=== PATIENT | female | born 1950 | race Caucasian/White ===

== ENCOUNTER 2017-05-11 07:00 | Day surgery (SDC) | payer OTHER, MEDICARE ==
[~2017-05-11] VITALS: Ht 165.1 cm; Wt 94.3 kg
[~2017-05-11 07:00] MED LIST: ASPIRIN325 MG PO
--- NOTE | 2017-05-11 07:58 | NUR ---
XRAY IS HERE TO TAKE PT TO IMAGING
--- NOTE | 2017-05-11 09:23 | NUR ---
PT IS BACK FROM XRAY. HOOKED BACK UP TO LR.
--- NOTE | 2017-05-11 10:54 | NUR ---
PT GOING THROUGH BREATHING TX PER HOT SAW HELPER PONCHO.
--- NOTE | 2017-05-11 12:09 | NUR ---
05/11/17 1206 Suzette Santiago 1204 PATIENT ARRIVES TO PACU ASLEEP, OPENS EYES TO VERBAL COMMAND, DENIES PAIN OR NAUSEA, THEN BACK TO SLEEP. RESP EVEN AND UNLABORED. MASK AT 8 LITERS.
[2017-05-11] MEDS ORDERED: OXYCODON-ACETA1 EAC2 PO (12:23)
[2017-05-11] MEDS ORDERED: IBUPROFEN600 MG PO (12:23)
[2017-05-22] MEDS ORDERED: HYDROMORPHONE HC4 MG PO (14:24)
[2017-05-22] MEDS ORDERED: MAPAP325 MG PO (14:25)
[2017-05-22] MEDS ORDERED: IBUPROFEN600 MG PO (14:26)
--- NOTE | 2017-06-02 07:48 | OR ---
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 PROCEDURE Left needle localized excisional breast biopsy. SURGEON: Madeline Frias MD. ANESTHESIA General endotracheal (Angela Palafox CRNA) and local 10 mL of 0.25% Marcaine with Epinephrine. INDICATION This 67-year-old white woman is a patient of TONY Mercado and underwent image guided biopsy by Katarina Adame MD, for an upper outer aspect left breast mass that had a fair amount of suspicion . The biopsy did not show malignancy, but did show flat epithelial atypia. Given the findings and technique of biopsy, wider excision of the mass in total is recommended. As it is not palpable, a needle localized biopsy will be necessary. A marker was left at the site of previous biopsy to assist in localization. The patient understands the risks of bleeding, infection, need for additional treatment should malignancy be found after all as well as other unforeseen complications and wished to proceed. FINDINGS The needle was emanating from the outer aspect of the left breast in the upper portion. It was directed laterally. Wide excision of the lesion was undertaken in continuity with normal tissue as specimen radiograph confirmed that the lesion in question was in the specimen including the marker. There were no complications. DESCRIPTION OF PROCEDURE The patient received from the radiology suite with the wire emanating from the left breast and taped in securely. She was given a general endotracheal anesthetic. Preoperative antibiotic Ancef was given and sequential compression device stockings used. The left breast was prepared with spray of Betadine solution after trimming the Electronically Signed By: MADELINE FRIAS MD 06/02/17 0748 PATIENT NAME: WHIT NIETO OPERATIVE REPORT DATE OF : 52 PHYSICIAN: MADELINE FRIAS MD REPORT #: [id number] REPORT IS CONFIDENTIAL AND NOT TO BE RELEASED WITHOUT AUTHORIZATION [facility] [address], [place] [address] Signed wire to appropriate length. I had reviewed the images with the radiologist prior to this operative intervention. An incision was made along the line of skin tension lateral and inferior to the site of the wire emanating from the breast. Dissection was carried through the dermis sharply. Using blunt dissection, the wire was delivered in to the wound and an Allis clamp applied to the parenchyma of the breast. Using electrocautery, a cylindrical core of breast tissue with wire as a guide was excised extending past the tip of the needle. It was noted that the abnormality was along the shaft of the wire not at the end of it. Complete excision was undertaken. The specimen was passed for specimen radiograph. It was subsequently confirmed that the lesion in question as well as a marker associated with the lesion was in the specimen itself. A 2-0 Vicryl had been used to secure 1 vessel within the parenchyma of the breast. The remaining breast was carefully irrigated and found to be hemostatic. The parenchyma was reapproximated with interrupted 2-0 Vicryl. Skin closed with running subcuticular 3-0 Vicryl. Steri-Strips were applied as was a Mepilex silver sponge dressing and an OpSite. The patient was ultimately extubated and transferred to recovery in good condition having suffered no complications. Sponge, needle, and counts reported as correct x3. MD KAREN Soliman/James /[id number] cc: TONY Mercado MD Electronically Signed By: MADELINE FRIAS MD 06/02/17 0748 PATIENT NAME: WHIT NIETO PORSHA OPERATIVE REPORT DATE OF : 52 PHYSICIAN: MADELINE FRIAS MD REPORT #: [id number] REPORT IS CONFIDENTIAL AND NOT TO BE RELEASED WITHOUT AUTHORIZATION
== END 2017-05-11 14:50 | disposition home or self-care (01) ==
LOC: DS 07:00 → US 08:00 → DS 08:00 → EDSTATUS 08:00 → DS 09:00 → US 05-18 09:00
PROVIDERS: Surgery
PROC: 0HBU0ZX Excision of Left Breast, Open Approach, Diagnostic (ICD-10-PCS; principal; 2017-05-11 09:00)
DX: D05.12 Intraductal carcinoma in situ of left breast (principal); I10 Essential (primary) hypertension; F17.210 Nicotine dependence, cigarettes, uncomplicated; Z88.5 Allergy status to narcotic agent; Z90.710 Acquired absence of both cervix and uterus; Z90.49 Acquired absence of other specified parts of digestive tract; Z90.89 Acquired absence of other organs; Z98.890 Other specified postprocedural states
CPT/HCPCS: 00404; 19285; 76098; G0206; J0330; J0690; J1100; J1644; J1885; J2250; J2405; J2704; J3010; J7120

== ENCOUNTER 2017-05-22 07:18 | Day surgery (SDC) | payer OTHER, MEDICARE ==
[~2017-05-22] VITALS: Ht 165.1 cm; Wt 94.3 kg
[~2017-05-22 07:18] MED LIST changes: +IBUPROFEN600 MG PO; +OXYCODON-ACETA1 EAC2 PO
--- NOTE | 2017-05-22 14:15 | NUR ---
PT SITTING IN BED, WAITING FOR IV. SHE IS ALERT, ORIENTED AND REMAINING OPTIMISTIC POSSIBLE. SHE TOLD ME THE OPTONS FOR TODAY, I ENCOURAGED TO NOT LOOK TOO FAR DOWN THE ROAD UNTIL WE KNOW WHAT WE ARE UP AGAINST. SHE VOICED THAT SHE WAS WORKING HARD AT THAT. SHE REQUESTED PRAYER, WILL FOLLOW NEEDED
[2017-05-22] MEDS ORDERED: HYDROMORPHONE HC4 MG PO ×2 (14:24)
[2017-05-22] MEDS ORDERED: MAPAP325 MG PO ×2 (14:25)
[2017-05-22] MEDS ORDERED: IBUPROFEN600 MG PO ×2 (14:26)
--- NOTE | 2017-05-22 14:44 | NUR ---
05/22/17 1444 Latesha Lindsey 1406 TO ARRIVED TO PACU WITH DRAIN IN PLACE FROM OR, PT ON 10L VIA MASK. 1421 PT O2 SAT 100%, O2 REMOVED. 1427 MD AT [facility]. PT REPORTING 4/10 PAIN AND NOT ACCEPTABLE. PEIN MEDICATIONS GIVEN PER EMAR. 1433 PT FEELING NAUSEA, MEDICATIONS GIVEN 1436 3/10 PAIN, MEDICATION GIVEN PER EMAR.
--- NOTE | 2017-05-22 16:14 | NUR ---
LE 1533 PT RETURNED FROM PACU WIDE AWAKE. RATES PAIN 3/10. DRINKING COFFEE AND WATER. CALL LITE IN PLACE.
--- NOTE | 2017-05-22 16:45 | NUR ---
CUONG 1615 PT VERY EMOTIONAL AND TEARY. RN SAT AT BEDSIDE AND VISITED WITH PT. VITAL SIGNS TAKEN. EATING PUDDING.
--- NOTE | 2017-06-02 07:49 | OR ---
[facility] [address], [place] [address] Signed DATE OF PROCEDURE: 05/22/17 PREOPERATIVE DIAGNOSES Left infiltrating ductal breast carcinoma (upper outer quadrant). Negative margin on needle localized excision. Tumor particulars 0.9 cm, ER/MI positive. POSTOPERATIVE DIAGNOSES Left infiltrating ductal breast carcinoma (upper outer quadrant). Negative margin on needle localized excision. Tumor particulars 0.9 cm, ER/MI positive. Moderately suspicious axillary lymph nodes x3. PROCEDURE Injection of methylene blue for sentinel lymph node identification. Axillary exploration with ultimately axillary dissection level 2. ANESTHESIA: General endotracheal, Angela Diaz CRNA. INDICATION This 67-year-old white woman is a patient of TONY Mercado. She was noted to have a left abnormal mammogram. The lesion was quite suspicious and image-guided biopsy was undertaken by Dr. Katarina Adame. This showed flat epithelial atypia. On that basis, a needle localized excisional biopsy was undertaken. The lesion was located in the upper outer aspect of the left breast. The pathology report of the lesion actually showed infiltrating ductal carcinoma, moderately differentiated. ER/MI positive with size of 0.9 cm. She is recovered well from her operation. I have discussed with her extensively the options of management going forward. Radiation therapy of the left breast is anticipated. Staging of the axilla by sentinel lymph node biopsy has been recommended. A plan was made for methylene blue and radionuclide sentinel lymph node identification, however, the radionuclide is not available today. I did offer to reschedule on a different day, but she wishes to proceed with methylene blue alone as difficulties with rescheduling a time are considerable for her. It is notable that the incision from excision of the tumor was in the upper outer aspect of the breast not far from the axilla itself. She understands that if sentinel lymph node biopsy is positive on frozen intraoperative examination, then completion axillary dissection be undertaken. Additionally, if the sentinel lymph nodes could not be identified by dye technique, axillary dissection would ensue or if there were suspicious lymph nodes by palpation, axillary dissection would be Electronically Signed By: MADELINE FRIAS MD 06/02/17 0749 PATIENT NAME: WHIT NIETO OPERATIVE REPORT DATE OF : 52 PHYSICIAN: MADELINE FRIAS MD REPORT #: [id number] REPORT IS CONFIDENTIAL AND NOT TO BE RELEASED WITHOUT AUTHORIZATION [facility] [address], [place] [address] Signed recommended. Understands and she wished to proceed today. FINDINGS Methylene blue arborized around the areola including the nipple itself. There was methylene blue that appeared to be arrested at the incision in the upper outer aspect of the left breast. Axillary evaluation did not show uptake of methylene blue dye at all and extensive attempts to identify sentinel lymph node that we were unsuccessful. On that basis, the incision was extended and better examination of the axilla undertaken with palpation revealing 3 lymph nodes that were somewhat suspicious as they were at least 2 cm in size. They were not firm and hard, however. Axillary dissection was undertaken and level 2 dissection was undertaken. The long thoracic and thoracodorsal neurovascular bundles were identified and preserved. A generous axillary specimen was obtained including the 3 suspicious nodes and throughout the remaining soft tissue of the axilla with extensive evaluation, no findings of methylene blue uptake were noted. A drain was placed. DESCRIPTION OF PROCEDURE The patient was brought to the operating room, given a general endotracheal anesthetic. Preoperative antibiotic Ancef was given. Sequential compression device stockings were applied. Heparin subcutaneously administered. At the upper outer aspect of the left areola, 1 mL of methylene blue dye was injected in the subepidermal area. This was 50% dilute directly from the bottle. Arborization around the areola was noted including uptake into the nipple itself. In time, dye could be seen near the upper outer aspect incision, but not beyond it. Some deep parenchymal injection of methylene blue dye was undertaken at the outset even though the dominant amount was in the subepithelial space. The left breast was prepared with a Betadine solution and drape d sterilely. A small transverse incision was made in the mid axilla, dissection carried through the dermis with electrocautery. In the usual technique of [place] retractors and blunt dissection with a tonsil clamp and headlight illumination and loupe magnification, the axillary tissue was carefully interrogated looking for blue dye and lymph node or lymph tissue. Extensive evaluation was undertaken throughout the axilla both medially, inferiorly, laterally, deep, and superiorly. There was no uptake of methylene blue dye whatsoever. Upon dissection in the medial aspect of the left axilla, entry to a seroma cavity was noted. Turbid brownish fluid was removed. It was clear that the sentinel lymph node would not be identified on this evaluation. Digital examination to the axilla was undertaken showing initially 2 rather enlarged lymph nodes at least 2 cm and possibly larger. They did not have uptake of methylene Electronically Signed By: MADELINE FRIAS MD 06/02/17 0749 PATIENT NAME: WHIT NIETO OPERATIVE REPORT DATE OF : 52 PHYSICIAN: MADELINE FRIAS MD REPORT #: [id number] REPORT IS CONFIDENTIAL AND NOT TO BE RELEASED WITHOUT AUTHORIZATION [facility] [address], [place] [address] Signed blue dye. It was deemed appropriate to perform axillary dissection on the basis of non-uptake of the methylene blue, but also from the moderately suspicious axillary lymph nodes that were identified by palpation. A level 2 dissection was undertaken extending from the axillary vein and superficial to the thoracodorsal and neurovascular bundle and lateral to the long thoracic nerve. A generous packet of axillary fat and lymph nodes was obtained. Clips were applied to the vessels as necessary. After excision of the soft tissue, the axilla was packed with a laparotomy pad and examination of the axillary contents undertaken. Three somewhat suspicious lymph nodes were identified, all marked with suture. At this point, further examination was deemed of little import. Dissection through the subcutaneous and fatty tissue of the axilla showed no uptake of methylene blue dye at all. Irrigation was undertaken of the axilla with sterile water. There was no evidence of untoward bleeding. Some Gage was applied to the axillary contents and through a separate stab incision, a 7 mm Ronaldo drain was placed. This secured the skin with nylon suture. The wound was closed with interrupted 2-0 Vicryl in deep subcutaneous layer and running subcuticular 3-0 Vicryl to the skin. Steri-Strips were applied as was a Mepilex silver sponge dressing. The drain had been secured with 2-0 nylon, trimmed to appropriate size and attached to bulb suction. The patient was ultimately extubated and transferred to recovery room in good condition having suffered no complication. Sponge, needle, and counts reported as correct x2. MD KAREN Soliman/James /[id number] cc: MD Viktor Hermosillo FNP Electronically Signed By: MADELINE FRIAS MD 06/02/17 0749 PATIENT NAME: WHIT NIETO PORSHA OPERATIVE REPORT DATE OF : 52 PHYSICIAN: MADELINE FRIAS MD REPORT #: [id number] REPORT IS CONFIDENTIAL AND NOT TO BE RELEASED WITHOUT AUTHORIZATION
== END 2017-05-22 17:15 | disposition home or self-care (01) ==
LOC: DS 07:18 → EDSTATUS 08:30 → DS 08:30 → NUC 08:30 → DS 17:15
PROVIDERS: Surgery
PROC: 07B60ZX Excision of Left Axillary Lymphatic, Open Approach, Diagnostic (ICD-10-PCS; principal; 2017-05-22 12:00)
DX: C50.412 Malignant neoplasm of upper-outer quadrant of left female breast (principal); I10 Essential (primary) hypertension; F17.210 Nicotine dependence, cigarettes, uncomplicated; Z90.89 Acquired absence of other organs; Z88.8 Allergy status to other drugs, medicaments and biological substances; Z88.5 Allergy status to narcotic agent; Z90.710 Acquired absence of both cervix and uterus; Z90.49 Acquired absence of other specified parts of digestive tract; Z98.890 Other specified postprocedural states
CPT/HCPCS: 00400; J0330; J0690; J1100; J1644; J1885; J2250; J2405; J2704; J3010; J7120; Q9968

== ENCOUNTER 2017-05-28 10:30 | Emergency (ER) | payer OTHER, MEDICARE ==
[~2017-05-28] VITALS: Ht 165.1 cm; Wt 94.3 kg
[~2017-05-28 10:30] MED LIST changes: +HYDROMORPHONE HC4 MG PO; +MAPAP325 MG PO
--- OUTSIDE RECORDS SUMMARY | 2017-05-28 10:56 | XMS ---
Demographics + + + | Address | [address] | | | [place] [address] | + + + | Preferred Language | Unknown | + + + | Marital Status | Unknown | + + + | Muslim Affiliation | Unknown | + + + | Race | Unknown | + + + | Ethnic Group | Unknown | + + + Author + + + | Author | [facility] | + + + | Organization | [facility] | + + + | Address | [address] | | | [place] [address] | + + + | Phone | | + + + Care Team Providers + + + + | Care Senior Data Warehouse Developer Name | Role | Phone | + + + + Unavailable | Unavailable | + + + + PROBLEMS +---------+ + + +--------+ + + | Type | Condition | ICD9-CM | [id number] | Onset | Condition | SNOMED | | | | Code | Code | Dates | Status | Code | +---------+ + + +--------+ + + | Problem | Hypertensi | | I10 | | Active | [id number] | | | on | | | | | | +---------+ + + +--------+ + + | Problem | Abnormalit | R92.8 | | | Active | [id number] | | | y of left | | | | | | | | breast on | | | | | | | | screening | | | | | | | | mammogram | | | | | | +---------+ + + +--------+ + + | Problem | Mass of | N63 | | | Active | 83217485 | | | left | | | | | | | | breast | | | | | | +---------+ + + +--------+ + + | Problem | Lumbar | M54.16 | | | Active | 025596684 | | | radiculopa | | | | | | | | thy | | | | | | +---------+ + + +--------+ + + | Problem | Hyperglyce | | R73.9 | | Active | 95319588 | | | nikky | | | | | | +---------+ + + +--------+ + + | Problem | Lump of | N63 | | | Active | 93469640 | | | right | | | | | | | | breast | | | | | | +---------+ + + +--------+ + + | Problem | Breast | N64.4 | | | Active | 58783746 | | | tenderness | | | | | | +---------+ + + +--------+ + + ALLERGIES Unknown Allergies SOCIAL HISTORY No smoking Hx information available PLAN OF CARE VITAL SIGNS MEDICATIONS Unknown Medications RESULTS No Results PROCEDURES No Known procedures IMMUNIZATIONS No Known Immunizations"
--- OUTSIDE RECORDS SUMMARY | 2017-05-28 10:56 | XMS ---
Demographics + + + | Address | [address] | | | [place] [address] | + + + | Preferred Language | Unknown | + + + | Marital Status | Unknown | + + + | Buddhist Affiliation | Unknown | + + + | Race | Unknown | + + + | Ethnic Group | Unknown | + + + Author + + + | Author | [facility] | + + + | Organization | [facility] | + + + | Address | [address] | | | [place] [address] | + + + | Phone | | + + + Care Team Providers + + + + | Care Biomedical Engineering Director Name | Role | Phone | + + + + Unavailable | Unavailable | + + + + PROBLEMS +---------+ + + +--------+ + + | Type | Condition | ICD9-CM | [id number] | Onset | Condition | SNOMED | | | | Code | Code | Dates | Status | Code | +---------+ + + +--------+ + + | Problem | Mass of | N63 | | | Active | [id number] | | | left | | | | | | | | breast | | | | | | +---------+ + + +--------+ + + | Problem | Lump of | N63 | | | Active | 00773324 | | | right | | | | | | | | breast | | | | | | +---------+ + + +--------+ + + | Problem | Hyperglyce | | R73.9 | | Active | 87133400 | | | nikky | | | | | | +---------+ + + +--------+ + + | Problem | Hypertensi | | I10 | | Active | 43083259 | | | on | | | | | | +---------+ + + +--------+ + + | Problem | Breast | N64.4 | | | Active | 47495582 | | | tenderness | | | | | | +---------+ + + +--------+ + + | Problem | Lumbar | M54.16 | | | Active | 704197755 | | | radiculopa | | | | | | | | thy | | | | | | +---------+ + + +--------+ + + ALLERGIES Unknown Allergies SOCIAL HISTORY No smoking Hx information available PLAN OF CARE VITAL SIGNS MEDICATIONS Unknown Medications RESULTS No Results PROCEDURES No Known procedures IMMUNIZATIONS No Known Immunizations"
--- OUTSIDE RECORDS SUMMARY | 2017-05-28 10:56 | XMS ---
Demographics + + + | Address | [address] | | | [place] [address] | + + + | Preferred Language | Unknown | + + + | Marital Status | Unknown | + + + | Evangelical Affiliation | Unknown | + + + | Race | Unknown | + + + | Ethnic Group | Unknown | + + + Author + + + | Author | [facility] | + + + | Organization | [facility] [place] [facility] | + + + | Address | [address] | | | [place] [address] | + + + | Phone | | + + + Care Team Providers + + + + | Care Research Chief Engineer Name | Role | Phone | + + + + Unavailable | Unavailable | + + + + PROBLEMS +---------+ + + +--------+ + + | Type | Condition | ICD9-CM | [id number] | Onset | Condition | SNOMED | | | | Code | Code | Dates | Status | Code | +---------+ + + +--------+ + + | Problem | Hypertensi | | I10 | | Active | [id number] | | | on | | | | | | +---------+ + + +--------+ + + | Problem | Abnormalit | R92.8 | | | Active | 171084235 | | | y of left | | | | | | | | breast on | | | | | | | | screening | | | | | | | | mammogram | | | | | | +---------+ + + +--------+ + + | Problem | Mass of | N63 | | | Active | 93197940 | | | left | | | | | | | | breast | | | | | | +---------+ + + +--------+ + + | Problem | Lumbar | M54.16 | | | Active | 061310009 | | | radiculopa | | | | | | | | thy | | | | | | +---------+ + + +--------+ + + | Problem | Hyperglyce | | R73.9 | | Active | 49232528 | | | nikky | | | | | | +---------+ + + +--------+ + + | Problem | Lump of | N63 | | | Active | 61274499 | | | right | | | | | | | | breast | | | | | | +---------+ + + +--------+ + + | Problem | Breast | N64.4 | | | Active | 25202884 | | | tenderness | | | | | | +---------+ + + +--------+ + + ALLERGIES Unknown Allergies SOCIAL HISTORY No smoking Hx information available PLAN OF CARE VITAL SIGNS MEDICATIONS Unknown Medications RESULTS No Results PROCEDURES No Known procedures IMMUNIZATIONS No Known Immunizations"
--- OUTSIDE RECORDS SUMMARY | 2017-05-28 10:56 | XMS ---
Demographics + + + | Address | [address] | | | [place] [address] | + + + | Preferred Language | Unknown | + + + | Marital Status | Unknown | + + + | Religion Affiliation | Unknown | + + + | Race | Unknown | + + + | Ethnic Group | Unknown | + + + Author + + + | Author | [facility] | + + + | Organization | [facility] | + + + | Address | [address] | | | [place] [address] | + + + | Phone | | + + + Care Team Providers + + + + | Care Icer Air Conditioning Name | Role | Phone | + + + + Unavailable | Unavailable | + + + + PROBLEMS +---------+ + + +--------+ + + | Type | Condition | ICD9-CM | [id number] | Onset | Condition | SNOMED | | | | Code | Code | Dates | Status | Code | +---------+ + + +--------+ + + | Problem | Mass of | N63 | | | Active | 17450898 | | | left | | | | | | | | breast | | | | | | +---------+ + + +--------+ + + | Problem | Lump of | N63 | | | Active | 97492443 | | | right | | | | | | | | breast | | | | | | +---------+ + + +--------+ + + | Problem | Hyperglyce | | R73.9 | | Active | 85979431 | | | nikky | | | | | | +---------+ + + +--------+ + + | Problem | Hypertensi | | I10 | | Active | 17016818 | | | on | | | | | | +---------+ + + +--------+ + + | Problem | Breast | N64.4 | | | Active | 56130693 | | | tenderness | | | | | | +---------+ + + +--------+ + + | Problem | Lumbar | M54.16 | | | Active | 082792741 | | | radiculopa | | | | | | | | thy | | | | | | +---------+ + + +--------+ + + ALLERGIES No Information SOCIAL HISTORY Never Assessed PLAN OF CARE VITAL SIGNS MEDICATIONS Unknown Medications RESULTS No Results PROCEDURES No Known procedures IMMUNIZATIONS No Known Immunizations MEDICAL (GENERAL) HISTORY + + + + | Type | Description | Date | + + + + | Medical History | HTN | | + + + + | Medical History | Major Depression--remission | | | | since 1989, possibly | | | | Bipolar | | + + + + | Medical History | 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 | | + + + + | Medical History | Carpal tunnel syndrome | | | | bilateral | | + + + + | Medical History | Post Menopausal since 1985 | | + + + + | Medical History | G5, P4, Miscarriage 1 | | + + + + | Medical History | Lumbar DDD | | + + + + | Medical History | Cervical DDD with fusion | | + + + + | Surgical History | Tonsilectomy, adnoidectomy | 1964 | + + + + | Surgical History | R knee | 1974 | + + + + | Surgical History | Hysto, apendectomy, | 1987 | | | rectocile, systocile | | + + + + | Surgical History | 4 vaginal deliveries. G5, | 1970, 1973, 1983, 1980 | | | P 4, Miscarriage x1 | | + + + + | Surgical History | Bilateral carpel tunnel | 1989 | + + + + | Surgical History | 5 surgeries to R leg [place] | 1998 | | | in 30 places) | | + + + + | Surgical History | C5-C7 fused | 2005 | + + + + | Surgical History | Bilateral Cataract removal | 2014 | | | surgery | | + + + + | Hospitalization History | 14 admissions to mental | 1965 - 1983 | | | health facilities between | | | | this time. Major | | | | depression. Had suicidal | | | | attempts | | + + + +"
--- OUTSIDE RECORDS SUMMARY | 2017-05-28 10:57 | XMS ---
Demographics + + + | Address | [address] | | | [place] [address] | + + + | Preferred Language | Unknown | + + + | Marital Status | Unknown | + + + | Jehovah'S Witness Affiliation | Unknown | + + + | Race | Unknown | + + + | Ethnic Group | Unknown | + + + Author + + + | Author | [facility] | + + + | Organization | [facility] | + + + | Address | [address] | | | [place] [address] | + + + | Phone | | + + + Care Team Providers + + + + | Care Vibration Analyst Name | Role | Phone | + + + + Unavailable | Unavailable | + + + + PROBLEMS +---------+ + + +--------+ + + | Type | Condition | ICD9-CM | [id number] | Onset | Condition | SNOMED | | | | Code | Code | Dates | Status | Code | +---------+ + + +--------+ + + | Problem | Lump of | N63 | | | Active | 95411784 | | | right | | | | | | | | breast | | | | | | +---------+ + + +--------+ + + | Problem | Breast | N64.4 | | | Active | 15543451 | | | tenderness | | | | | | +---------+ + + +--------+ + + | Problem | Hypertensi | | I10 | | Active | 45145598 | | | on | | | | | | +---------+ + + +--------+ + + | Problem | Lumbar | M54.16 | | | Active | 944976832 | | | radiculopa | | | | | | | | thy | | | | | | +---------+ + + +--------+ + + | Problem | Hyperglyce | | R73.9 | | Active | 11465017 | | | nikky | | | | | | +---------+ + + +--------+ + + ALLERGIES Unknown Allergies SOCIAL HISTORY No smoking Hx information available PLAN OF CARE VITAL SIGNS MEDICATIONS Unknown Medications RESULTS No Results PROCEDURES No Known procedures IMMUNIZATIONS No Known Immunizations"
--- OUTSIDE RECORDS SUMMARY | 2017-05-28 10:57 | XMS ---
Demographics + + + | Address | [address] | | | [place] [address] | + + + | Preferred Language | Unknown | + + + | Marital Status | Unknown | + + + | Sikh Affiliation | Unknown | + + + | Race | Unknown | + + + | Ethnic Group | Unknown | + + + Author + + + | Author | [facility] | + + + | Organization | [facility] | + + + | Address | [address] | | | [place] [address] | + + + | Phone | | + + + Care Team Providers + + + + | Care Full Fashioned Garment Knitter Name | Role | Phone | + + + + Unavailable | Unavailable | + + + + PROBLEMS +---------+ + + +--------+ + + | Type | Condition | ICD9-CM | [id number] | Onset | Condition | SNOMED | | | | Code | Code | Dates | Status | Code | +---------+ + + +--------+ + + | Problem | Mass of | N63 | | | Active | 31409226 | | | left | | | | | | | | breast | | | | | | +---------+ + + +--------+ + + | Problem | Lump of | N63 | | | Active | 51159535 | | | right | | | | | | | | breast | | | | | | +---------+ + + +--------+ + + | Problem | Hyperglyce | | R73.9 | | Active | 30595870 | | | nikky | | | | | | +---------+ + + +--------+ + + | Problem | Hypertensi | | I10 | | Active | 56123564 | | | on | | | | | | +---------+ + + +--------+ + + | Problem | Breast | N64.4 | | | Active | 44993228 | | | tenderness | | | | | | +---------+ + + +--------+ + + | Problem | Lumbar | M54.16 | | | Active | 558949197 | | | radiculopa | | | | | | | | thy | | | | | | +---------+ + + +--------+ + + ALLERGIES Unknown Allergies SOCIAL HISTORY No smoking Hx information available PLAN OF CARE + +---------+ | Activity | Details | + +---------+ +---+ | | +---+ + + + | Future/Pending Procedure | Ultrasound guided Breast Biopsy | + + + VITAL SIGNS MEDICATIONS Unknown Medications RESULTS No Results PROCEDURES No Known procedures IMMUNIZATIONS No Known Immunizations"
--- OUTSIDE RECORDS SUMMARY | 2017-05-28 10:57 | XMS ---
Demographics + + + | Address | [address] [facility] | | | [place] [address] | + + + | Preferred Language | Unknown | + + + | Marital Status | Unknown | + + + | Confucianism Affiliation | Unknown | + + + | Race | Unknown | + + + | Ethnic Group | Unknown | + + + Author + + + | Author | [facility] | + + + | Organization | [facility] | + + + | Address | [address] | | | [place] [address] | + + + | Phone | | + + + Care Team Providers + + + + | Care Brazer Controlled Atmospheric Furnace Name | Role | Phone | + + + + Unavailable | Unavailable | + + + + PROBLEMS +---------+ + + +--------+ + + | Type | Condition | ICD9-CM | [id number] | Onset | Condition | SNOMED | | | | Code | Code | Dates | Status | Code | +---------+ + + +--------+ + + | Problem | Mass of | N63 | | | Active | 05893231 | | | left | | | | | | | | breast | | | | | | +---------+ + + +--------+ + + | Problem | Lump of | N63 | | | Active | 88516853 | | | right | | | | | | | | breast | | | | | | +---------+ + + +--------+ + + | Problem | Hyperglyce | | R73.9 | | Active | 00099517 | | | nikky | | | | | | +---------+ + + +--------+ + + | Problem | Hypertensi | | I10 | | Active | 53650511 | | | on | | | | | | +---------+ + + +--------+ + + | Problem | Breast | N64.4 | | | Active | 94247695 | | | tenderness | | | | | | +---------+ + + +--------+ + + | Problem | Lumbar | M54.16 | | | Active | 566406768 | | | radiculopa | | | | | | | | thy | | | | | | +---------+ + + +--------+ + + ALLERGIES Unknown Allergies SOCIAL HISTORY No smoking Hx information available PLAN OF CARE VITAL SIGNS MEDICATIONS Unknown Medications RESULTS No Results PROCEDURES No Known procedures IMMUNIZATIONS No Known Immunizations"
--- OUTSIDE RECORDS SUMMARY | 2017-05-28 10:57 | XMS ---
Demographics + + + | Address | [address] [facility] [address] | | | [place] [address] | + + + | Preferred Language | Unknown | + + + | Marital Status | Unknown | + + + | Christianity Affiliation | Unknown | + + + | Race | Unknown | + + + | Ethnic Group | Unknown | + + + Author + + + | Author | [facility] | + + + | Organization | [facility] | + + + | Address | [address] | | | [place] [address] | + + + | Phone | | + + + Care Team Providers + + + + | Care Crate Icer Name | Role | Phone | + + + + Unavailable | Unavailable | + + + + PROBLEMS +---------+ + + +--------+ + + | Type | Condition | ICD9-CM | [id number] | Onset | Condition | SNOMED | | | | Code | Code | Dates | Status | Code | +---------+ + + +--------+ + + | Problem | Lump of | N63 | | | Active | 39116980 | | | right | | | | | | | | breast | | | | | | +---------+ + + +--------+ + + | Problem | Breast | N64.4 | | | Active | 96685704 | | | tenderness | | | | | | +---------+ + + +--------+ + + | Problem | Hypertensi | | I10 | | Active | 01207703 | | | on | | | | | | +---------+ + + +--------+ + + | Problem | Lumbar | M54.16 | | | Active | 639741048 | | | radiculopa | | | | | | | | thy | | | | | | +---------+ + + +--------+ + + | Problem | Hyperglyce | | R73.9 | | Active | 20836865 | | | nikky | | | | | | +---------+ + + +--------+ + + ALLERGIES + + + + +--------+ | Substance | Reaction | Event Type | Date | Status | + + + + +--------+ | Lisinopril | Cough | Drug Allergy | Dec, | Active | + + + + +--------+ SOCIAL HISTORY No smoking Hx information available PLAN OF CARE + +---------+ | Activity | Details | + +---------+ +---+ | | +---+ + + + | Follow Up | 2 Weeks Reason:null | + + + | Pending Test | TSH | + + + | Pending Test | Comp. Metabolic Panel (14) | + + + | Pending Test | Lipid Panel | + + + | Pending Test | Hemoglobin A1C Panel | + + + | Pending Test | CBC with Differential Count | + + + | Pending Test | Mammogram: Diagnostic (Bilateral) | + + + VITAL SIGNS + + + + | Height | 65.25 in | 2017-01-19 | + + + + | Weight | 208.2 lbs | 2017-01-19 | + + + + | BMI | 34.38 kg/m2 | 2017-01-19 | + + + + | Temperature | 98.6 degrees Fahrenheit | 2017-01-19 | + + + + | Heart Rate | 71 /min | 2017-01-19 | + + + + | Blood pressure systolic | 154 mm Hg | 2017-01-19 | + + + + | Blood pressure diastolic | 93 mm Hg | 2017-01-19 | + + + + MEDICATIONS + + + + +--------+ + +--------+ | Medicati | Instruct | Dosage | Frequenc | Start | End Date | Duration | Status | | on | ions | | y | Date | | | | + + + + +--------+ + +--------+ | Aspirin | Orally | 1 tablet | 24h | | | | Active | | 325 MG | Once a | | | | | | | | | day | | | | | | | + + + + +--------+ + +--------+ RESULTS + +--------+------+ + | Name | Result | Date | Reference Range | + +--------+------+ + | X ray : Spine | | | | | Lumbar Complete | | | | | AP/L/O | | | | + +--------+------+ + PROCEDURES + + + + + | Procedure | Date Ordered | Related Diagnosis | Body Site | + + + + + | Est Level IV | January 19, 2017 | | | | Extended | | | | + + + + + | DSCHRG MED/CURRENT | January 19, 2017 | | | | MED MERGE | | | | + + + + + | DOC MEDS VERIFIED | January 19, 2017 | | | | W/PT OR RE | | | | + + + + + IMMUNIZATIONS No Known Immunizations"
--- OUTSIDE RECORDS SUMMARY | 2017-05-28 10:57 | XMS ---
Demographics + + + | Address | [address] | | | [place] [address] | + + + | Preferred Language | Unknown | + + + | Marital Status | Unknown | + + + | Scientology Affiliation | Unknown | + + + | Race | Unknown | + + + | Ethnic Group | Unknown | + + + Author + + + | Author | [facility] | + + + | Organization | [facility] | + + + | Address | [address] | | | [place] [address] | + + + | Phone | | + + + Care Team Providers + + + + | Care Rugby League Footballer Name | Role | Phone | + + + + Unavailable | Unavailable | + + + + PROBLEMS +---------+ + + +--------+ + + | Type | Condition | ICD9-CM | [id number] | Onset | Condition | SNOMED | | | | Code | Code | Dates | Status | Code | +---------+ + + +--------+ + + | Problem | Hypertensi | | I10 | | Active | 20110574 | | | on | | | | | | +---------+ + + +--------+ + + | Problem | Abnormalit | R92.8 | | | Active | 686458497 | | | y of left | | | | | | | | breast on | | | | | | | | screening | | | | | | | | mammogram | | | | | | +---------+ + + +--------+ + + | Problem | Mass of | N63 | | | Active | 69930045 | | | left | | | | | | | | breast | | | | | | +---------+ + + +--------+ + + | Problem | Lumbar | M54.16 | | | Active | 787124455 | | | radiculopa | | | | | | | | thy | | | | | | +---------+ + + +--------+ + + | Problem | Hyperglyce | | R73.9 | | Active | 69108350 | | | nkiky | | | | | | +---------+ + + +--------+ + + | Problem | Lump of | N63 | | | Active | 90698340 | | | right | | | | | | | | breast | | | | | | +---------+ + + +--------+ + + | Problem | Breast | N64.4 | | | Active | 87756735 | | | tenderness | | | | | | +---------+ + + +--------+ + + ALLERGIES Unknown Allergies SOCIAL HISTORY No smoking Hx information available PLAN OF CARE VITAL SIGNS MEDICATIONS Unknown Medications RESULTS No Results PROCEDURES No Known procedures IMMUNIZATIONS No Known Immunizations"
--- OUTSIDE RECORDS SUMMARY | 2017-05-28 10:57 | XMS ---
Demographics + + + | Address | [address] [facility] | | | [place] [address] | + + + | Preferred Language | Unknown | + + + | Marital Status | Unknown | + + + | Oriental Orthodox Affiliation | Unknown | + + + | Race | Unknown | + + + | Ethnic Group | Unknown | + + + Author + + + | Author | [facility] | + + + | Organization | [facility] | + + + | Address | [address] | | | [place] [address] | + + + | Phone | | + + + Care Team Providers + + + + | Care Marker Hand Name | Role | Phone | + + + + Unavailable | Unavailable | + + + + PROBLEMS +---------+ + + +--------+ + + | Type | Condition | ICD9-CM | FPX95-[id number] | Onset | Condition | SNOMED | | | | Code | Code | Dates | Status | Code | +---------+ + + +--------+ + + | Problem | Mass of | N63 | | | Active | 86560130 | | | left | | | | | | | | breast | | | | | | +---------+ + + +--------+ + + | Problem | Lump of | N63 | | | Active | 15477975 | | | right | | | | | | | | breast | | | | | | +---------+ + + +--------+ + + | Problem | Hyperglyce | | R73.9 | | Active | 36996152 | | | nikky | | | | | | +---------+ + + +--------+ + + | Problem | Hypertensi | | I10 | | Active | 53129410 | | | on | | | | | | +---------+ + + +--------+ + + | Problem | Breast | N64.4 | | | Active | 26732768 | | | tenderness | | | | | | +---------+ + + +--------+ + + | Problem | Lumbar | M54.16 | | | Active | 507124262 | | | radiculopa | | | | | | | | thy | | | | | | +---------+ + + +--------+ + + ALLERGIES Unknown Allergies SOCIAL HISTORY No smoking Hx information available PLAN OF CARE + +---------+ | Activity | Details | + +---------+ +---+ | | +---+ + + + | Pending Test | Ultrasound : Breasts, bilateral | + + + VITAL SIGNS MEDICATIONS Unknown Medications RESULTS No Results PROCEDURES No Known procedures IMMUNIZATIONS No Known Immunizations"
== END 2017-05-28 11:12 | disposition home or self-care (01) ==
LOC: ED 10:30
DX: Z48.817 Encounter for surgical aftercare following surgery on the skin and subcutaneous tissue (principal); F17.200 Nicotine dependence, unspecified, uncomplicated; Z88.5 Allergy status to narcotic agent
CPT/HCPCS: 99282